=== PATIENT | female | born 1990 | race American Indian/Alaskan Native ===

== ENCOUNTER 2017-09-14 10:49 | Emergency (ER) | payer BC ==
[2017-09-14 11:08] VITALS: TEMP 98.3; O2SAT 99
[2017-09-14 11:09] VITALS: BMI 21.2
--- NOTE | 2017-09-14 11:39 | ED PDOC ---
Arrival/HPI - General Chief Complaint: Lower Extremity Problem/Injury Time Seen by Provider: 09/14/17 11:22 Historian: Patient - History of Present Illness Narrative History of Present Illness (Text): 09/14/17 11:20 27 year old female, with no significant PMH, presents to the emergency department complaining of right medial ankle pain s/p mechanical fall. Patient reports she was on top of a ladder at home when she slipped and fell landing on her right ankle and twisting it. Patient denies any loss of consciousness, dizziness, nausea, numbness, weakness, or other complaints. Time/Duration: Prior to Arrival Symptom Onset: Sudden Symptom Course: Unchanged Context: Home, Slipped Past Medical History - Provider Review Nursing Documentation Reviewed: Yes - Infectious Disease Hx of Infectious Diseases: None - Psychiatric Hx Substance Use: No Family/Social History - Physician Review Nursing Documentation Reviewed: Yes Family/Social History: Unknown Family HX Smoking Status: Current Some Days Smoker Hx Alcohol Use: No Hx Substance Use: No Allergies/Home Meds Allergies/Adverse Reactions: Allergies No Known Allergies Allergy (Verified 09/14/17 11:32) Review of Systems - Physician Review All systems were reviewed & negative as marked: Yes - Review of Systems Constitutional: absent: Fevers Respiratory: absent: SOB Cardiovascular: absent: Chest Pain Musculoskeletal: Other (right ankle pain on medial aspect ) Neurological: absent: Headache, Dizziness Physical Exam Vital Signs Reviewed: Yes Vital Signs Temp Pulse Resp BP Pulse Ox 09/14/17 12:07 86 18 126/65 99 09/14/17 11:06 98.3 F 90 16 129/69 99 Temperature: Afebrile Blood Pressure: Normal Pulse: Regular Respiratory Rate: Normal Appearance: Positive for: Well-Appearing, Non-Toxic, Comfortable Pain Distress: None Mental Status: Positive for: Alert and Oriented X 3 - Systems Exam Head: Present: Atraumatic, Normocephalic Pupils: Present: PERRL Extroacular Muscles: Present: EOMI Conjunctiva: Present: Normal Neck: Present: Normal Range of Motion Lower Extremity: Present: NORMAL PULSES, Tenderness (tenderness on medial side of right ankle ), Neurovascularly Intact, Capillary Refill < 2 s. No: Normal Inspection, Edema, Cyanosis Neurological: Present: GCS=15, CN II-XII Intact, Speech Normal Skin: Present: Warm, Dry, Normal Color. No: Rashes Psychiatric: Present: Alert, Oriented x 3, Normal Insight, Normal Concentration Medical Decision Making ED Course and Treatment: 09/14/17 Impression: 27 year old female with tenderness on right medial ankle s/p mechanical fall Differential Diagnosis included but are not limited to: r/o ankle fx vs. ankle sprain Plan: -- Motrin -- Right ankle x-ray -- Reassess and disposition Progress Notes: 09/14/17 12:20 Right ankle x-ray: Creator : Don Bullock MD FINDINGS: BONES: Normal. No fracture. JOINTS: Normal. No osteoarthritis. Ankle mortise maintained. Talar dome intact SOFT TISSUES: Normal. OTHER FINDINGS: None. IMPRESSION: Normal right ankle radiographs. Xray normal. EMT franck placed patient in an marty wrap, surgical show and was given crutches. patient was advised to rest, ice and elevated her ankle. She was advised to make sure to follow up with PMD in 1-2 days and to make srue to follow up with orthopedics. - RAD Interpretation Radiology Orders: 09/14/17 11:23 ANKLE RIGHT 3 VIEWS ROUTINE [RAD] Stat Owner/Photographer: Radiologist - Medication Orders Current Medication Orders: Discontinued Medications Ibuprofen (Motrin Tab) 600 mg PO STAT STA Stop: 09/14/17 11:24 Last Admin: 09/14/17 11:45 Dose: 600 mg MAR Pain/Vitals Document 09/14/17 11:45 HI (Rec: 09/14/17 11:58 HI [id number]) Pain Reassessment Is This A Pain ReAssessment? No Sleep Is patient sleeping during reassessment? No Presence of Pain Presence of Pain Yes Pain Scale Used Pain Scale Used Numeric Location Left, Right or Bilateral Right Description Dull Intensity 6 Scale Used Numeric - Scribe Statement The provider has reviewed the documentation as recorded by the Angelicibnate Acosta Provider Scribe Attestation: All medical record entries made by the Scribe were at my direction and personally dictated by me. I have reviewed the chart and agree that the record accurately reflects my personal performance of the history, physical exam, medical decision making, and the department course for this patient. I have also personally directed, reviewed, and agree with the discharge instructions and disposition. Disposition/Present on Arrival - Present on Arrival Any Indicators Present on Arrival: No History of DVT/PE: No History of Uncontrolled Diabetes: No Urinary Catheter: No History of Decub. Ulcer: No History Surgical Site Infection Following: None - Disposition Have Diagnosis and Disposition been Completed?: Yes Diagnosis: Ankle sprain Disposition: HOME/ ROUTINE Disposition Time: 12:17 Patient Plan: Discharge Condition: IMPROVED Discharge Instructions (ExitCare): Ankle Sprain Additional Instructions: Ms Jiménez, thank you for letting us take care of you today. Your provider was Dr. Cardenas. You were treated for Ankle Sprain. The emergency medical care you received today was directed at your acute symptoms. If you were prescribed any medication, please fill it and take as directed. It may take several days for your symptoms to resolve. Return to the Emergency Department if your symptoms worsen, do not improve, or if you have any other problems. Please contact your doctor or call one of the physicians/clinics you have been referred to that are listed on the Patient Visit Information form that is included in your discharge packet. Bring any paperwork you were given at discharge with you along with any medications you are taking to your follow up visit. Our treatment cannot replace ongoing medical care by a primary care provider (PCP) outside of the emergency department. Thank you for allowing the [facility] team to be part of your care today. If you had an X-Ray or CT scan: A Radiologist will review the ED reading if any change in treatment is needed we will contact you. If you had a blood, urine, or wound culture: It will take several days for the results, if any change in treatment is needed we will contact you. If you had an STI test: It will take 48 hours for the results. Please call after 1 week if you have not heard back. Prescriptions: Ibuprofen [Motrin] 600 mg PO Q6 PRN #30 tab PRN Reason: Pain, Moderate (4-7) Referrals: [facility] at [facility] [place] [Outside] - Follow up with primary Kyung Mo, [Non-Staff] - Follow up with primary Anthony Fernandez III, MD [Medical Doctor] - Follow up with primary Forms: [employer] (Portuguese), WORK NOTE
[2017-09-14 12:16] VITALS: BP 126/65; PULSE 86; RESP 18
--- NOTE | 2017-09-14 12:18 | RAD ---
PROCEDURE: Right Ankle Radiographs. HISTORY: fall r/o fx COMPARISON: None FINDINGS: BONES: Normal. No fracture. JOINTS: Normal. No osteoarthritis. Ankle mortise maintained. Talar dome intact SOFT TISSUES: Normal. OTHER FINDINGS: None. IMPRESSION: Normal right ankle radiographs.
== END 2017-09-14 12:17 | disposition home or self-care (01) ==
LOC: MERGE 10:49 → ED 10:49
DX: S93.401A Sprain of unspecified ligament of right ankle, initial encounter (principal); W11.XXXA Fall on and from ladder, initial encounter; Y92.009 Unspecified place in unspecified non-institutional (private) residence as the place of occurrence of the external cause

== ENCOUNTER 2017-12-14 10:21 | Emergency (ER) | payer BC ==
[2017-12-14 10:22] VITALS: BMI 22.1
[2017-12-14 10:30] VITALS: TEMP 99.1
--- NOTE | 2017-12-14 10:35 | ED PDOC ---
Arrival/HPI - General Chief Complaint: Lower Extremity Problem/Injury Time Seen by Provider: 12/14/17 10:31 Historian: Patient - History of Present Illness Narrative History of Present Illness (Text): 12/14/17 10:32 27yo female with no past medical history who present with complaint of left knee pain s/p trauma yesterday. states she slipped on a wet floor and hit her left knee on the floor. States she applied ice to the knee yesterday, but felt stiff and pain this morning. Describes pain as "soreness". Did not take any analgesic. Denies any other complaint. Past Medical History - Provider Review Nursing Documentation Reviewed: Yes - Infectious Disease Hx of Infectious Diseases: None - Cardiac Hx Cardiac Disorders: No - Pulmonary Hx Respiratory Disorders: No - Neurological Hx Neurological Disorder: No - HEENT Hx HEENT Disorder: No - Renal Hx Renal Disorder: No - Endocrine/Metabolic Hx Endocrine Disorders: No - Hematological/Oncological Hx Blood Disorders: No - Integumentary Hx Dermatological Disorder: No - Musculoskeletal/Rheumatological Hx Musculoskeletal Disorders: No - Gastrointestinal Hx Gastrointestinal Disorders: No - Genitourinary/Gynecological Hx Genitourinary Disorders: No - Psychiatric Hx Psychophysiologic Disorder: No Hx Substance Use: No - Anesthesia Hx Anesthesia: No Family/Social History - Physician Review Nursing Documentation Reviewed: Yes Family/Social History: Unknown Family HX Smoking Status: Current Some Days Smoker Hx Alcohol Use: Yes Frequency of alcohol use: Socially Hx Substance Use: No Allergies/Home Meds Allergies/Adverse Reactions: Allergies No Known Allergies Allergy (Verified 12/14/17 10:23) Home Medications: Home Meds Medication Instructions Recorded Confirmed Ethinyl Estradiol/Drospirenone 1 tab PO DAILY 12/14/17 12/14/17 [Nani 3 mg-0.02 mg Tablet] Review of Systems - Physician Review All systems were reviewed & negative as marked: Yes - Review of Systems Constitutional: Normal Eyes: Normal ENT: Normal Respiratory: Normal Cardiovascular: Normal Gastrointestinal: Normal Genitourinary Female: Normal Musculoskeletal: Arthralgias (LEft knee pain) Skin: Normal Neurological: Normal Endocrine: Normal Hemo/Lymphatic: Normal Psychiatric: Normal Physical Exam Vital Signs Reviewed: Yes Vital Signs Temp Pulse Resp BP Pulse Ox 12/14/17 10:24 99.1 F 85 16 106/71 98 Temperature: Afebrile Blood Pressure: Normal Pulse: Regular Respiratory Rate: Normal Appearance: Positive for: Well-Appearing, Non-Toxic, Comfortable Pain Distress: None Mental Status: Positive for: Alert and Oriented X 3 - Systems Exam Head: Present: Atraumatic, Normocephalic Pupils: Present: PERRL Extroacular Muscles: Present: EOMI Conjunctiva: Present: Normal Mouth: Present: Moist Mucous Membranes Neck: Present: Normal Range of Motion Respiratory/Chest: Present: Clear to Auscultation, Good Air Exchange. No: Respiratory Distress, Accessory Muscle Use Cardiovascular: Present: Regular Rate and Rhythm, Normal S1, S2. No: Murmurs Abdomen: No: Tenderness, Distention, Peritoneal Signs Back: Present: Normal Inspection Upper Extremity: Present: Normal Inspection. No: Cyanosis, Edema Lower Extremity: Present: NORMAL PULSES, Normal ROM, Tenderness (Mild tenderness over medial aspect of left knee), Neurovascularly Intact. No: Edema , Swelling, Deformity Neurological: Present: GCS=15, CN II-XII Intact, Speech Normal Skin: Present: Warm, Dry, Normal Color. No: Rashes Psychiatric: Present: Alert, Oriented x 3, Normal Insight, Normal Concentration Medical Decision Making ED Course and Treatment: 12/14/17 11:45 PT in Emergency department for stated history Left knee xray - No acute fracture/dislocation PT was ambulatory. Result was DW the pt. Knee immobilizer placed and pt was advised to RICE knee. Referred to ortho. - RAD Interpretation Radiology Orders: 12/14/17 10:31 KNEE WITH PATELLA LEFT 3 VIEW [RAD] Stat - Medication Orders Current Medication Orders: Discontinued Medications Ibuprofen (Motrin Tab) 600 mg PO STAT STA Stop: 12/14/17 10:33 Last Admin: 12/14/17 10:55 Dose: 600 mg MAR Pain/Vitals Document 12/14/17 10:55 EQ (Rec: 12/14/17 10:56 EQ [id number]) Pain Reassessment Is This A Pain ReAssessment? No Sleep Is patient sleeping during reassessment? No Presence of Pain Presence of Pain Yes Pain Scale Used Pain Scale Used Numeric Ondansetron HCl (Zofran Odt) 4 mg PO STAT STA Stop: 12/14/17 11:23 Last Admin: 12/14/17 11:35 Dose: 4 mg Disposition/Present on Arrival - Present on Arrival Any Indicators Present on Arrival: No History of DVT/PE: No History of Uncontrolled Diabetes: No Urinary Catheter: No History of Decub. Ulcer: No History Surgical Site Infection Following: None - Disposition Have Diagnosis and Disposition been Completed?: Yes Diagnosis: Knee injury Disposition: HOME/ ROUTINE Disposition Time: 11:50 Patient Plan: Discharge Condition: STABLE Discharge Instructions (ExitCare): Knee Pain Additional Instructions: Rest, Ice, compress and elevate knee Follow up with your doctor/Orthopedist Return to Emergency department for any new or worsening symptoms Prescriptions: Ibuprofen [Motrin Tab] 600 mg PO Q6 #20 tab Referrals: Liz Morales MD [Primary Care Provider] - Follow up with primary Don Cline DO [Staff Provider] - Follow up with primary Forms: [employer] (Polish)
--- NOTE | 2017-12-14 11:58 | RAD ---
Date of service: 12/14/2017 PROCEDURE: Left Knee Radiographs. HISTORY: Pain. COMPARISON: None. FINDINGS: BONES: Normal. No fracture. JOINTS: Normal. No osteoarthritis. JOINT EFFUSION: None. OTHER FINDINGS: None. IMPRESSION: Normal radiographs of the left knee.
[2017-12-14 12:21] VITALS: BP 110/69; PULSE 69; RESP 18; O2SAT 100
== END 2017-12-14 12:21 | disposition home or self-care (01) ==
LOC: ED 10:21
DX: S89.92XA Unspecified injury of left lower leg, initial encounter (principal); W01.0XXA Fall on same level from slipping, tripping and stumbling without subsequent striking against object, initial encounter

== ENCOUNTER 2018-03-01 09:26 | Emergency (ER) | payer BC ==
[2018-03-01 09:42] VITALS: BMI 22.0
--- NOTE | 2018-03-01 09:56 | ED PDOC ---
Arrival/HPI - General Chief Complaint: Medical Clearance Time Seen by Provider: 03/01/18 09:39 Historian: Patient - History of Present Illness Narrative History of Present Illness (Text): 28 y/o F w/ no PMH presenting to the Emergency Department for left sided neck pain. The patient states she was moving boxes at home when she noted a box fell directly onto her face. She denies LOC, head injury or back pain. Patient states she had left sided neck pain worsened with turning to the left. She denies changes in vision, parasthesias, but reports slight tenderness to the left congregation. She denies taking any medications for pain. She denies chest pain, shortness of breath, syncopal episodes, dizziness, nausea/emesis, abdominal pain, or weakness. No PMD Time/Duration: Prior to Arrival Symptom Onset: Sudden Symptom Course: Intermittent Quality: Aching Severity Level: Moderate Context: Home Past Medical History - Provider Review Nursing Documentation Reviewed: Yes - Travel History Have you recently traveled outside [place] w/in the past 3 mons?: No - Infectious Disease Hx of Infectious Diseases: None - Cardiac Hx Cardiac Disorders: No - Pulmonary Hx Respiratory Disorders: No - Neurological Hx Neurological Disorder: No - HEENT Hx HEENT Disorder: No - Renal Hx Renal Disorder: No - Endocrine/Metabolic Hx Endocrine Disorders: No - Hematological/Oncological Hx Blood Disorders: No - Integumentary Hx Dermatological Disorder: No - Musculoskeletal/Rheumatological Hx Musculoskeletal Disorders: No - Gastrointestinal Hx Gastrointestinal Disorders: No - Genitourinary/Gynecological Hx Genitourinary Disorders: No - Psychiatric Hx Psychophysiologic Disorder: No Hx Substance Use: No - Anesthesia Hx Anesthesia: No Family/Social History - Physician Review Nursing Documentation Reviewed: Yes Family/Social History: No Known Family HX Smoking Status: Current Some Days Smoker Hx Alcohol Use: Yes Hx Substance Use: No Allergies/Home Meds Allergies/Adverse Reactions: Allergies No Known Allergies Allergy (Verified 03/01/18 09:41) Home Medications: Home Meds Medication Instructions Recorded Confirmed Ethinyl Estradiol/Drospirenone 1 tab PO DAILY 12/14/17 12/14/17 [Nani 3 mg-0.02 mg Tablet] Review of Systems - Physician Review All systems were reviewed & negative as marked: Yes - Review of Systems Eyes: absent: Vision Changes, Photophobia, Eye Pain ENT: absent: Hearing Changes, Tinnitus, TMJ Pain Musculoskeletal: Neck Pain, Myalgias. absent: Arthralgias Physical Exam Vital Signs Temp Pulse Resp BP Pulse Ox 03/01/18 09:42 98.5 F 82 18 115/64 100 Temperature: Afebrile Blood Pressure: Normal Pulse: Regular Respiratory Rate: Normal Appearance: Positive for: Well-Appearing, Non-Toxic, Comfortable Mental Status: Positive for: Alert and Oriented X 3 - Systems Exam Head: Present: Atraumatic, Normocephalic Pupils: Present: PERRL Extroacular Muscles: Present: EOMI Conjunctiva: Present: Normal Mouth: Present: Moist Mucous Membranes Pharnyx: Present: Normal. No: ERYTHEMA Neck: Present: Normal Range of Motion, Paraspinal Tenderness. No: MIDLINE TENDERNESS Respiratory/Chest: Present: Clear to Auscultation, Good Air Exchange. No: Respiratory Distress, Accessory Muscle Use Cardiovascular: Present: Regular Rate and Rhythm, Normal S1, S2. No: Murmurs Abdomen: Present: Normal Bowel Sounds. No: Tenderness, Distention, Peritoneal Signs Upper Extremity: Present: Normal Inspection, Capillary Refill < 2s Lower Extremity: Present: Normal Inspection Neurological: Present: GCS=15, CN II-XII Intact, Speech Normal Skin: Present: Warm, Dry, Normal Color Lymphatic: No: Cervical Adenopathy Psychiatric: Present: Alert, Oriented x 3, Normal Insight, Normal Concentration Medical Decision Making ED Course and Treatment: 03/01/18 11:29 Impression 28 y/o F w/ neck pain Differential Diagnoses Include But Is Not Limited To: MSK neck pain Odontoid Fracture Atlanto-Occipital Dissociation Subluxation Plan --U preg --Cervical XR --Toradol --Valium --Reassess & Disposition Progress Note 03/01/18 11:30 Cervical spine XR reviewed with no sign of subluxation or farcture. Patient reevaluated and reports improvement in pain. She will follow up with her PCP. - RAD Interpretation Radiology Orders: 03/01/18 09:46 CERVICAL SPINE >18YR W/OBLIQUE [RAD] Stat - Medication Orders Current Medication Orders: Ketorolac Tromethamine (Toradol) 60 mg IM STAT STA Stop: 03/01/18 09:47 Discontinued Medications Diazepam (Valium) 5 mg PO ONCE ONE; Protocol Stop: 03/01/18 09:47 Disposition/Present on Arrival - Present on Arrival Any Indicators Present on Arrival: No History of DVT/PE: No History of Uncontrolled Diabetes: No Urinary Catheter: No History of Decub. Ulcer: No History Surgical Site Infection Following: None - Disposition Have Diagnosis and Disposition been Completed?: Yes Diagnosis: Neck sprain Disposition: HOME/ ROUTINE Disposition Time: 11:32 Patient Plan: Discharge Condition: IMPROVED Discharge Instructions (ExitCare): Cervical Muscle Strain (DC), Neck Sprain (DC) Additional Instructions: Please take Motrin every 6 hours with food as needed for pain Do not operate machinery or drive for 4 hours once you take Flexaril(may be taken at night before bed) Please follow up with your primary care physician in 1-2 days Prescriptions: Cyclobenzaprine [Flexeril] 5 mg PO PRN PRN #4 tab PRN Reason: Muscle Spasm RX: Ibuprofen [Motrin Tab] 600 mg PO Q6H PRN 6 Days #24 tab PRN Reason: Pain, Moderate (4-7) Referrals: Brook Estrada MD [Medical Doctor] - Follow up with primary [facility] at [facility] [place] [Outside] - Follow up with primary Forms: [employer] (Indian), WORK NOTE
[2018-03-01 10:05] VITALS: TEMP 97.8
[2018-03-01 11:55] VITALS: BP 112/50; PULSE 80; RESP 18; O2SAT 98
--- NOTE | 2018-03-01 13:28 | RAD ---
Date of service: 03/01/2018 PROCEDURE: Cervical Spine Radiographs. HISTORY: Pain. COMPARISON: None. FINDINGS: BONES: Alignment maintained. No fracture. Dens Intact. DISC SPACES: Normal. SOFT TISSUES: Normal. No prevertebral soft tissue swelling. OTHER FINDINGS: None. IMPRESSION: Normal cervical spine radiographs
== END 2018-03-01 11:55 | disposition home or self-care (01) ==
LOC: ED 09:26
DX: S13.9XXA Sprain of joints and ligaments of unspecified parts of neck, initial encounter (principal); W20.8XXA Other cause of strike by thrown, projected or falling object, initial encounter; Y92.009 Unspecified place in unspecified non-institutional (private) residence as the place of occurrence of the external cause
CPT/HCPCS: 72050; 96372; 99282; J1885